=== PATIENT | male | born 1950 | race Caucasian/White ===

== ENCOUNTER 2018-05-12 00:05 | Emergency (ER) | payer MEDICARE ==
--- NOTE | 2018-05-12 00:08 | ER Report ---
History and Physical Time Seen By MD: 00:08 HPI/ROS CHIEF COMPLAINT: cough HISTORY OF PRESENT ILLNESS: This is a 68 year old male, visiting from [place], snowmobiling trip. Multiple people sick, having a cough for several weeks. No fevers. Feels short of breath at times. No chest pain or palpitations. Chest congestion. No nausea or vomiting. Allergies: Coded Allergies: doxycycline (Verified Allergy, Unknown, 05/12/18) Home Meds Active Scripts Guaifenesin/Codeine (GUAIFENESIN-CODEINE SYRUP) 5 Ml Syrp, 5 ML PO Q6H PRN for COUGH, #120 ML 0 Refills Prov:PANFILO BRITTON MD 05/12/18 Benzonatate 100 Mg Cap (TESSALON PERLE 100 MG CAP) 100 Mg Capsule, 100 MG PO TID, #15 CAP 0 Refills Prov:PANFILO BRITTON MD 05/12/18 Reviewed Nurses Notes: Yes Constitutional Vital Sign - Last 24 Hours 05/12/18 05/12/18 05/12/18 05/12/18 00:09 00:10 00:24 00:24 Temp 98.7 Pulse 91 77 Resp 19 18 B/P (MAP) 175/112 (133) 175/112 Pulse Ox 85 94 O2 Delivery Room Air Nasal Cannula O2 Flow Rate 3.0 05/12/18 05/12/18 05/12/18 05/12/18 00:30 00:32 00:35 01:03 Pulse 85 85 84 Resp 18 B/P (MAP) 134/77 (96) 131/89 (103) Pulse Ox 96 96 05/12/18 01:08 Pulse 75 Pulse Ox 96 Physical Exam General Appearance: Alert, no acute distress. Eyes: Pupils equal and round, no injection. ENT: Normal oral mucosa. Moist mucous membranes. Posterior nasopharynx with thin post-nasal drainage. Nasal mucosa red and erythematous. Tympanic membranes are normal. Neck: Neck is supple and non tender. Respiratory: Lungs with some rhonchi, no wheezing or rales, mild diminished. Cardiac: regular rate and rhythm Musculoskeletal: Extremities have full range of motion. Skin: No rashes or lesions. DIFFERENTIAL DIAGNOSIS: After history and physical exam differential diagnosis was considered for cough and shortness of breath. Medical Decision Making Data Points Laboratory Hematology Test 05/12/18 00:20 Influenza Virus Type A (PCR) Negative (NEGATIVE) Influenza Virus Type B (PCR) Negative (NEGATIVE) Chemistry Test 05/12/18 00:20 Influenza Virus Type A (PCR) Negative (NEGATIVE) Influenza Virus Type B (PCR) Negative (NEGATIVE) EKG/Imaging Imaging TWO VIEW CHEST 05/12/2018 12:14 AM. INDICATION: cough COMPARISON: None. FINDINGS: Lungs are well-expanded. The lungs are clear. No pneumothorax or pleural effusion. Heart size is normal. IMPRESSION: No acute abnormality. Report Dictated By: Naveen Soto MD at 05/12/2018 1:11 AM ED Course/Re-evaluation ED Course Influenza negative. Improved with Albuterol. Provided Benzonatate and Guaifenesin with Codeine. Albuterol inhaler. Decision to Disposition Date: May 12, 2018 Decision to Disposition Time: 01:18 Depart Departure Latest Vital Signs Vital Signs Date Time Temp Pulse Resp B/P (MAP) Pulse Ox O2 Delivery O2 Flow Rate FiO2 05/12/18 01:08 75 96 05/12/18 01:03 131/89 (103) 05/12/18 00:32 18 05/12/18 00:24 Nasal Cannula 3.0 05/12/18 00:10 98.7 Impression: Primary Impression: Viral upper respiratory infection Condition: Improved Disposition: HOME OR SELF-CARE New Scripts Guaifenesin/Codeine (GUAIFENESIN-CODEINE SYRUP) 5 Ml Syrp 5 ML PO Q6H PRN for COUGH, #120 ML 0 Refills Prov: PANFILO BRITTON MD 05/12/18 Benzonatate 100 Mg Cap (TESSALON PERLE 100 MG CAP) 100 Mg Capsule 100 MG PO TID, #15 CAP 0 Refills Prov: PANFILO BRITTON MD 05/12/18 Patient Instructions: Upper Respiratory Infection (ED) Additional Instructions: Take Guaifenesin with Codeine, 1 teaspoon every 4 hours as needed for cough. This medicine will make you drowsy. You can try Benzonatate 100mg (tessalon perles) one every 8 hours as needed for cough. Use the albuterol inhlaer, 2 inhalations every 4 hours as needed for shortness of breath. PANFILO BRITTON MD May 12, 2018 00:08
[2018-05-12] MEDS ORDERED: ALBUTEROL 2.5 MG/3 ML NEB NEB ONE (00:15)
[2018-05-12 01:03] VITALS: BP 131/89
--- NOTE | 2018-05-12 01:15 | RADIOLOGY IMAGING REPORT ---
FACILITY: [facility] - [place] PATIENT NAME: Minh Zaidi : 1950 MR: [id number] V: [id number] EXAM DATE: ORDERING PHYSICIAN: PANFILO BRITTON TECHNOLOGIST: Location: [facility] [place] Patient: Minh Zaidi : 1950 Visit/Account:[id number] Date of Sevice: 05/12/2018 TWO VIEW CHEST 05/12/2018 12:14 AM. INDICATION: cough COMPARISON: None. FINDINGS: Lungs are well-expanded. The lungs are clear. No pneumothorax or pleural effusion. Heart size is normal. IMPRESSION: No acute abnormality. Report Dictated By: Naveen Soto MD at 05/12/2018 1:11 AM Report E-Signed By: Naveen Soto MD at 05/12/2018 1:11 AM WSN:[id number]
[2018-05-12] MEDS ORDERED: ROBC PO (01:19)
[2018-05-12] MEDS ORDERED: BENZ100C4 PO (01:19)
[2018-05-12] MEDS ORDERED: ALBUTEROL 8 GM INHALER INH ONE (01:20)
[2018-05-12] MEDS ORDERED: guaiFENesin/CODEINE 5 ML UDBTL PO ONE ×2 (01:20→01:45)
[2018-05-12] MEDS ORDERED: BENZONATATE 100 MG CAP PO ONE (01:45)
== END 2018-05-12 01:50 | disposition home or self-care (01) ==
LOC: ER 00:21
DX: J06.9 Acute upper respiratory infection, unspecified (principal)
CPT/HCPCS: 71046; 87502; 94640; 99283; A9270; J7613